=== PATIENT | male | born 1985 | race Caucasian/White ===

== ENCOUNTER 2023-09-13 21:11 | Emergency (ER) | payer OTHER, SELFPAY ==
[2023-09-13 21:17] VITALS: BP 172/100
--- NOTE | 2023-09-13 23:43 | ED.GENMED ---
History of Present Illness
General
Chief Complaint: Musculo-Skeletal Complaint
Source: patient
Exam Limitations: none
Time Seen by Provider: 09/13/23 22:17
Travel History
Have you had any contact with someone who has COVID-19?: No
Do you have any symptoms of coronavirus? Fever > 100 degrees, chills, cough, shortness of breath, sore throat, loss of taste or smell, muscle aches, or headache?: No
History of Present Illness
History of Present Illness:
38-year-old male who presents with a right wrist injury. The patient states he fell just prior to arrival. Complains of pain just distal to the ulnar styloid. No finger injuries. No distal numbness or tingling. Does have a history of operative
repair of this wrist
Past History
Past History
ED Past Medical History: HTN
ED Past Surgical History: Orthopedic and Other (septoplasty)
Social History
Tobacco: Former smoker
Alcohol: Occasional
Personal:
Living: with family
Employment: Employed
Phy Exam
Physical Exam
Physical Exam:
CONSTITUTIONAL Vital signs reviewed, Patient alert and oriented to person, place and time. Well-appearing
HEAD atraumatic, normocephalic.
EYES eyelids normal to inspection, Extraocular muscles intact, Conjunctiva normal, Sclera normal.
NECK normal range of motion, Trachea midline, no jugular venous distention.
RESP no respiratory distress
BACK No obvious deformities
UPPER EXTREMITY Gross Range of motion normal, gross motor strength normal. Moderate tenderness to the area just distal to the ulnar styloid. Minor tenderness on the lateral carpal bones of the right wrist. Normal distal cap refill. Metacarpals
nontender. Distal radius nontender. Elbow unaffected
LOWER EXTREMITY Gross range of motion normal, Gross motor strength normal
NEURO Speech normal, No focal motor deficits include, Matthews coma scale 15, Memory normal, Cranial Nerves intact to screening exam.
SKIN Skin warm, dry, and normal in color.
PSYCHIATRIC Patient oriented to person place and time, Normal affect.
Course
Orders/Labs/Results
Orders:
Orders
09/13/23 21:22
Wrist, Right 3 Views [CR Wrist - Right Min 3 Views] Urgent
Comment:
Reason For Exam: injury
Vital Signs
Initial and Last Documented VS:
Initial Vital Signs
Temp Pulse Resp BP Pulse Ox
98.1 F 95 20 172/100 99
09/13/23 21:17 09/13/23 21:17 09/13/23 21:17 09/13/23 21:17 09/13/23 21:17
Last Documented Vital Signs
Temp Pulse Resp BP Pulse Ox
98.1 F 95 20 172/100 99
09/13/23 21:17 09/13/23 21:17 09/13/23 21:17 09/13/23 21:17 09/13/23 21:17
MDM/Problems Addressed
MDM/Problems Addressed:
Suspect triquetrum avulsion
Acute Exacerbation and/or Progression of Chronic Illness: HTN
*Pulse Oximetry
Patient hypoxic: no
*Critical Care Note
Total Time (30-74mins, 75-104mins- exclusive of procedures): Not Applicable
Data Reviewed
Source: patient
Patient Management
Escalation/DeEscalation of care consider admission/obs:
Suspect avulsion fracture off what I suspect is of the triquetrum. Volar Velcro splint applied. Outpatient follow with orthopedics
ED Attending Note
-
Portions of this chart may have been created with voice recognition software.� Occasional wrong word or��sound alike� substitutions may have occurred due to the inherent limitations of voice recognition software.
Discharge Plan
Departure
Patient Disposition: Home (Routine Discharge)
Date of Disposition: 09/13/23
Time of Disposition: 23:44
Patient with high blood pressure during this ER visit?: Yes
Discharge Problem:
Carpal bone fracture
Instructions: Wrist Fracture (DC), BLOOD PRESSURE
Prescriptions:
No Action
multivitamin 1 EACH tablet
1 ea PO DAILY
lisinopril 5 mg Tablet
5 mg PO DAILY
Referrals:
Talib Quesada MD [Active] -
Tonny Castañeda MD [Family Provider] -
Activity Restrictions/Additional Instructions:
Please rest, ice and elevate your injured wrist. Please see orthopedics in the next 1 week for follow-up, reevaluation and repeat x-rays. Return immediately for numbness, tingling, worsening symptoms or any other concerns
Interventions
Interventions:
*Risk Screen - Suicide Last Done: 09/13/23 22:18
*General Assessment Last Done: 09/13/23 21:17
*Neglect/Abuse Screening Last Done: 09/13/23 21:17
ED- Fall Risk Assessment Last Done: 09/13/23 21:17
*ED COVID-19 Vaccine History Last Done: 09/13/23 21:17
*Nursing Disposition Last Done: 09/13/23 23:54
ED-Musculoskeletal Assessment Last Done: 09/13/23 22:17
Discharge Date and Time
Discharge Date/Time: 09/13/23 23:55
== END 2023-09-13 23:55 | disposition home or self-care (01) ==
LOC: EMR 21:11
PROVIDERS: EMERGENCY PHYSICIAN Emergency Medicine; FAMILY PHYSICIAN Internal Medicine
DX: S62.101A Fracture of unspecified carpal bone, right wrist, initial encounter for closed fracture (principal); W19.XXXA Unspecified fall, initial encounter; I10 Essential (primary) hypertension; Z87.891 Personal history of nicotine dependence
CPT/HCPCS: 99283; 29125; 73110

== ENCOUNTER 2024-02-02 11:55 | Emergency (ER) | payer OTHER, SELFPAY ==
[2024-02-02 11:58] VITALS: BP 163/115
[2024-02-02 12:12] VITALS: BP 147/104
--- NOTE | 2024-02-02 13:57 | ED.GENMED ---
History of Present Illness
General
Chief Complaint: Skin Surface Trauma
Source: patient
Exam Limitations: none
Time Seen by Provider: 02/02/24 12:37
Nursing documentation reviewed up to this point in time: agreed with
History of Present Illness
History of Present Illness:
38-year-old male presenting to the emergency department today with concerns of left-sided hand laceration that occurred from a metal yard stake just prior to arrival denies numbness weakness or additional concerns. He is up-to-date with his tetanus
vaccination no immunosuppressive history.
Past History
Past History
ED Past Medical History: HTN
ED Past Surgical History: Orthopedic and Other (septoplasty)
Social History
Tobacco: Former smoker
Alcohol: Occasional
Personal:
Living: with family
Employment: Employed
Review of Systems
Review of Systems
Allergies reviewed?: Yes
All Other Systems: ROS reviewed and negative except as documented in HPI and ROS
Phy Exam
Physical Exam
Physical Exam:
GENERAL: Alert , in no apparent distress
EYE: pupils equal and reactive
NECK: Supple, no significant adenopathy.
ENT: o/p clr, mmm.
CARDIAC: Regular rate and rhythm .
LUNGS: Clear breath sounds bilaterally, no acute respiratory distress, no wheezes/rales/rhonchi
ABDOMEN: Soft, without focal tenderness, no r/g, no cvat
NEUROLOGICAL: Alert and oriented, no focal neuro deficits
SKIN: Laceration to the left hand on the hypothenar eminence laterally. Stellate in shape central loss of tissue roughly 2.5 cm in length. Warm and dry, skin intact.
MUSCULOSKELETAL: No edema, well perfused.
PSYCH: Normal and appropriate interaction.
Course
Vital Signs
Initial and Last Documented VS:
Initial Vital Signs
Temp Pulse Resp BP Pulse Ox
98.7 F 107 18 163/115 97
02/02/24 11:58 02/02/24 11:58 02/02/24 11:58 02/02/24 11:58 02/02/24 11:58
Last Documented Vital Signs
Temp Pulse Resp BP Pulse Ox
98.7 F 107 18 147/104 97
02/02/24 11:58 02/02/24 11:58 02/02/24 11:58 02/02/24 12:12 02/02/24 11:58
Procedures
Laceration Closure
Left Ulnar Hand:
Status of Wound: clean
Size of Wound in cm: 2.5
Description of Wound Edges: ragged
Preparation: cleaned with soap & water
Anesthesia: 2% Lidocaine
Revision/Debridement: minor revision and irrigate-direct pressure
Wound exploration: explored to base- no FB and no tendon involvement
Type of Closure: single layer closure
Skin Closure Material: 4-0 nylon
Number of sutures: 7
MDM/Problems Addressed
MDM/Problems Addressed:
30-year-old male presenting to the emergency department today with concerns of a laceration to his hand occurring from a metal yard sign prior to arrival. He claims that was very clean. No foreign bodies likely denies any risk of infection. Area
was cleaned thoroughly with no signs of foreign body and closed with 7 stitches. Advised to keep the area clean covered and return for any signs of infection. Otherwise advised for removal in 14 days.
*Critical Care Note
Total Time (30-74mins, 75-104mins- exclusive of procedures): Not Applicable
ED Attending Note
-
Portions of this chart may have been created with voice recognition software.� Occasional wrong word or��sound alike� substitutions may have occurred due to the inherent limitations of voice recognition software.
Discharge Plan
Departure
Patient Disposition: Home (Routine Discharge)
Date of Disposition: 02/02/24
Time of Disposition: 13:57
Patient with high blood pressure during this ER visit?: No
Condition: Good
Covid-19: Not Applicable
Discharge Problem:
Hand laceration
Instructions: Laceration Repair With Stitches (DC)
Prescriptions:
No Action
multivitamin 1 EACH tablet
1 ea PO DAILY
lisinopril 5 mg Tablet
5 mg PO DAILY
Referrals:
UNKNOWN - PT DOES,NOT KNOW [Family Provider] -
Activity Restrictions/Additional Instructions:
You came to the emergency department today with concerns of a laceration to your left hand. Please keep the area clean covered and have the 7 sutures removed in 14 days. Return to the emergency department any worsening, new or concerning symptoms.
Interventions
Interventions:
*General Assessment Last Done: 02/02/24 14:09
*Nursing Disposition Last Done: 02/02/24 14:09
ED-Skin Assessment Last Done: 02/02/24 12:15
Discharge Date and Time
Discharge Date/Time: 02/02/24 14:09
Print Language: FRISIAN
== END 2024-02-02 14:09 | disposition home or self-care (01) ==
LOC: EMR 11:55
PROVIDERS: EMERGENCY PHYSICIAN Emergency Medicine
DX: S61.412A Laceration without foreign body of left hand, initial encounter (principal); X58.XXXA Exposure to other specified factors, initial encounter; I10 Essential (primary) hypertension; Z87.891 Personal history of nicotine dependence
CPT/HCPCS: 99282; 12001

== ENCOUNTER 2024-03-31 13:02 | Emergency (ER) | payer OTHER, SELFPAY ==
[2024-03-31 13:08] VITALS: BP 154/99
--- NOTE | 2024-03-31 15:28 | ED.GENMED ---
History of Present Illness
<KATELYN Beck - Last Filed: 03/31/24 15:48>
General
Chief Complaint: Musculo-Skeletal Complaint
Source: patient
Exam Limitations: none
Time Seen by Provider: 03/31/24 14:23
Nursing documentation reviewed up to this point in time: agreed with
History of Present Illness
History of Present Illness:
Patient is a 38-year-old male who presents to the ER for evaluation of right knee pain. Patient reports yesterday he was kneeling on his knee for couple minutes and felt pain in his right knee. He denies he denies any actual trauma or twisting
mechanism. 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 He does complain of pain though he has been taking Motrin. He denies any fever chills
Past History
<KATELYN Beck - Last Filed: 03/31/24 15:48>
Past History
ED Past Medical History: HTN
ED Past Surgical History: Orthopedic and Other (septoplasty)
Social History
Tobacco: Former smoker
Alcohol: Occasional
Personal:
Living: with family
Employment: Employed
Review of Systems
<KATELYN Beck - Last Filed: 03/31/24 15:48>
Review of Systems
Allergies reviewed?: Yes
All Other Systems: ROS reviewed and negative except as documented in HPI and ROS
Constitutional: Reports no symptoms; Denies fever, fatigue or chills
Musculoskeletal: Reports other (right knee pain )
Skin: Reports no symptoms
Neurological: Reports no symptoms
Hematologic/Lymphatic: Reports no symptoms
Psychiatric: Reports no symptoms
Phy Exam
<KATELYN Beck - Last Filed: 03/31/24 15:48>
General Physical Exam
General Presentation: no apparent distress
General age: appears stated age
General Skin: warm and dry
General Habitus: normal
General Mental: alert
General Hydration: appears well hydrated
Neurological Exam
Neurological Exam: alert and oriented x3
Musculoskeletal Exam
Musculoskeletal Exam: other (Right lower strong pulses patient tender below patella with mild swelling small area of erythema tender to patella region and below patella )
Skin Exam
Skin Exam: normal color and warm/dry
Psychiatric Exam
Psychiatric Exam: normal mood/affect
Course
<KATELYN Beck - Last Filed: 03/31/24 15:48>
Orders/Labs/Results
Orders:
Orders
03/31/24 13:11
CR Knee- Right 4 Or More View* Urgent
Comment:
Reason For Exam: pain
03/31/24 15:35
Crutches-Treatment ONCE
03/31/24 15:36
Booker Wrap Right-Treatment ONCE
Comment: right knee
03/31/24 15:41
Hydrocodone 5/APAP 325 [[place] 5/325] 1 tablet PO NOW STA
Ibuprofen [Motrin] 600 mg PO NOW STA
Vital Signs
Initial and Last Documented VS:
Initial Vital Signs
Temp Pulse Resp BP Pulse Ox
98.3 F 110 18 154/99 98
03/31/24 13:08 03/31/24 13:08 03/31/24 13:08 03/31/24 13:08 03/31/24 13:08
Last Documented Vital Signs
Temp Pulse Resp BP Pulse Ox
98.5 F 110 18 154/99 98
03/31/24 15:07 03/31/24 13:08 03/31/24 13:08 03/31/24 13:08 03/31/24 13:08
Chief Nurse consulted with Physician
Chief Nurse consulted with physician?: Yes
Name of Physician Consulted: DR Connor
<Talib Connor DO - Last Filed: 03/31/24 15:33>
Orders/Labs/Results
Orders:
Orders
03/31/24 13:11
CR Knee- Right 4 Or More View* Urgent
Comment:
Reason For Exam: pain
03/31/24 15:35
Crutches-Treatment ONCE
03/31/24 15:36
Booker Wrap Right-Treatment ONCE
Comment: right knee
03/31/24 15:41
Hydrocodone 5/APAP 325 [[place] 5/325] 1 tablet PO NOW STA
Ibuprofen [Motrin] 600 mg PO NOW STA
Vital Signs
Initial and Last Documented VS:
Initial Vital Signs
Temp Pulse Resp BP Pulse Ox
98.3 F 110 18 154/99 98
03/31/24 13:08 03/31/24 13:08 03/31/24 13:08 03/31/24 13:08 03/31/24 13:08
Last Documented Vital Signs
Temp Pulse Resp BP Pulse Ox
98.5 F 110 18 154/99 98
03/31/24 15:07 03/31/24 13:08 03/31/24 13:08 03/31/24 13:08 03/31/24 13:08
<KATELYN Beck - Last Filed: 03/31/24 15:48>
MDM/Problems Addressed
Differential Diagnosis Includes:
Not limited to bursitis less likely infection
MDM/Problems Addressed:
Symptoms are likely consistent with prepatellar bursitis. 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 He has obvious swelling very mild erythema on exam but more consistent with
bursitis than infection/septic arthritis. He denies any fever chills he is afebrile here and nontoxic-appearing. eval by ED physician will physician d/c w/ crutches/booker wrap nsaids pain meds and close outpt f/u by ortho
<KATELYN Beck - Last Filed: 03/31/24 15:48>
*Critical Care Note
Total Time (30-74mins, 75-104mins- exclusive of procedures): Not Applicable
ED Attending Note
<KATELYN Beck - Last Filed: 03/31/24 15:48>
-
Portions of this chart may have been created with voice recognition software.� Occasional wrong word or��sound alike� substitutions may have occurred due to the inherent limitations of voice recognition software.
<Talib Connor DO - Last Filed: 03/31/24 15:33>
ED Attending Note
Patient seen and examined by attending physician: Yes
I performed the substantive portion of visit, reviewed & personally made and approve the management plan that is documented in note by myself or JOSE.: Yes
ED Attending Note:
Seen with [employer] examined independently tenderness minimal redness positive swelling over the right prepatellar bursa after bending down x-ray noted not clearly cellulitic will start on NSAIDs, Booker wrap crutches PCP Ortho follow-up
No signs of infected prepatellar bursitis now although certainly could become that in the future
Discharge Plan
Departure
Patient Disposition: Home (Routine Discharge)
Date of Disposition: 03/31/24
Time of Disposition: 15:42
Patient with high blood pressure during this ER visit?: Yes
Condition: Fair
Covid-19: Not Applicable
Discharge Problem:
Bursitis of right knee
Instructions: Bursitis (DC)
Prescriptions:
New
hydrocodone-acetaminophen 5-325 mg tablet
1 tab PO Q6H PRN (Reason: Pain) Qty: 10 0RF
No Action
multivitamin 1 EACH tablet
1 ea PO DAILY
lisinopril 5 mg Tablet
5 mg PO DAILY
Referrals:
Trevor Mandujano MD [Active] -
Tonny Castañeda MD [Family Provider] -
Activity Restrictions/Additional Instructions:
As discussed keep elevate is much as possible. Ice the affected area for the next 24 hours 20 minutes at a time several times a day. Wear Booker wrap for support during the day but remove at night while sleeping. Use crutches for ambulation.
Take 600 mg of ibuprofen every 8 hours for the next 3 days
A prescription for pain medication was sent to your pharmacy take only as needed. No driving or drug alcohol while taking this medication..
Follow-up with orthopedics in the next 2 days. Call tomorrow to make an appointment as soon as possible return if any worsening of symptoms including worsening redness fever chills or increased pain.
Interventions
Interventions:
*Risk Screen - Suicide Last Done: 03/31/24 13:08
*General Assessment Last Done: 03/31/24 13:08
*Neglect/Abuse Screening Last Done: 03/31/24 13:08
*ED COVID-19 Vaccine History Last Done: 03/31/24 15:16
ED-Musculoskeletal Assessment Last Done: 03/31/24 15:16
Discharge Date and Time
Print Language: BELARUSIAN
[2024-03-31] MEDS: MOTRIN 600 MG PO (15:51)
[2024-03-31] MEDS: NORCO 5/325 1 TABLET PO (15:51)
== END 2024-03-31 16:02 | disposition home or self-care (01) ==
LOC: EMR 13:02
PROVIDERS: EMERGENCY PHYSICIAN Emergency Medicine; FAMILY PHYSICIAN Internal Medicine
DX: M70.51 Other bursitis of knee, right knee (principal); I10 Essential (primary) hypertension; Z87.891 Personal history of nicotine dependence
CPT/HCPCS: 99283; 73564

== ENCOUNTER → 2024-04-02 16:24 | Outpatient (REF) | payer OTHER, SELFPAY | LOC: RAD 16:24 | PROVIDERS: ATTENDING PHYSICIAN Orthopaedic Surgery; FAMILY PHYSICIAN Internal Medicine | DX: Z01.818 Encounter for other preprocedural examination (principal) | CPT/HCPCS: 70030 ==

== ENCOUNTER 2024-04-02 23:59 | Inpatient (IN) | payer OTHER, SELFPAY ==
[2024-04-02 20:47] VITALS: BP 137/109
--- NOTE | 2024-04-02 21:50 | ED.MUSCINJ ---
HPI-Injury
<Lulu Crowley RETORT OPERATOR - Last Filed: 04/05/24 08:22>
General
Chief Complaint: Musculo-Skeletal Complaint
Source: patient
Exam Limitations: none
Time Seen by Provider: 04/02/24 21:40
Nursing documentation reviewed up to this point in time: agreed with
History of Present Illness-Injury
Initial Injury comments:
38-year-old male with history of HTN on lisinopril 5 mg daily states he knelt down to wipe something off the floor 3 days ago and when he was down he felt a sudden severe pain in his right knee, he came here the next day and had a negative x-ray.
He has had increasing pain, swelling, redness and warmth about the knee and lower leg since. He called around and got an appointment today with [facility] and had an MRI but he does not have the results. He does have the disc with
him. Denies f/c/n/v. Feels well otherwise. Took Ibuprofen last 6 hours ago. States pain at res is 5/10 with any movement 8/10.
Past History
<Lulu Crowley RETORT OPERATOR - Last Filed: 04/05/24 08:22>
Past History
ED Past Medical History: HTN
ED Past Surgical History: Orthopedic and Other (septoplasty)
Social History
Tobacco: Former smoker
Alcohol: Occasional
Personal:
Living: with family
Employment: Employed
Review of Systems
<Lulu Crowley RETORT OPERATOR - Last Filed: 04/05/24 08:22>
Review of Systems
Allergies reviewed?: Yes
All Other Systems: ROS reviewed and negative except as documented in HPI and ROS
Constitutional: Denies fever or chills
Respiratory: Denies trouble breathing
Cardiac: Denies chest pain
Musculoskeletal: Reports edema (RLE with erytherma and tenderness about the knee)
Skin: Reports other (redness about right knee and lower leg)
Neurological: Denies numbness
Phy Exam
<Lulu Crowley, RETORT OPERATOR - Last Filed: 04/05/24 08:22>
Physical Exam
Physical Exam:
GENERAL: No acute distress. A&Ox3.
CONSTITUTIONAL: Afebrile.
EYES: clear, conjunctivae normal
RESPIRATORY: Regular respirations, nonlabored, lungs clear.
CARDIOVASCULAR: Regular rate and rhythm, no murmurs, no rubs.
GI: Soft, nontender, normal BS
MUSCULOSKELETAL: RLE from knee to ankle swollen 1-2 times the opposite leg, erythematous, warm tender about the knee, no calf tenderness. Limited ROM due to pain/swelling. 2/4 pedal pulse, brisk capillary refill, foot warm w no swelling. Well
perfused.
SKIN: Warm, dry, pink
PSYCH: Normal mood and affect. Well kept, interactive and appropriate
NEUROLOGIC: Awake, alert and oriented.
Injury Course
<Lulu Crowley, RETORT OPERATOR - Last Filed: 04/05/24 08:22>
Orders/Labs/Results
Orders:
Orders
04/02/24 21:50
US Periph Venous LOWER Ext RT Urgent
Comment:
Reason For Exam: swelling, redness, warmth, recent knee injury
04/02/24 22:09
Complete Blood Count/With Diff Urgent
Comprehensive Metabolic Panel Urgent
04/02/24 23:30
Ketorolac [Toradol] 30 mg IV NOW STA
04/02/24 23:32
CeFAZolin 1 GRAM [Ancef] 1 gram in 5 ml IV NOW
04/02/24 23:50
Admit/Transfer Patient As Directed
Co-Sign Provider:
Level of Care: Inpatient admission
Assign to:: Medical/Surgical
Physician / Group: Milo
Diagnosis: R Knee Septic Bursitis / Cellulitis
Reason for Hospitalization: R Knee Septic Bursitis / Cellulitis
Expected length of stay greater than two midnights?: Yes
ELOS- Estimated Length of Stay in days: 3
I certify the patient meets the requirements for IP care: Yes
PRN Pain Medication Management As Directed
May give lesser potent ordered pain med per pt: Yes
preference::
Protocol:: Medication orders for pain may be administered in a
manner that supports deferring to patient preference
when the pt is:
- Requesting an ordered lesser potent pain medication.
Least to most potent pain medications are defined
as: acetaminophen < NSAID < tramadol < opioids
(morphine, oxycodone, hydromorphone).
- Requesting a lesser dose of the same medication IF
ORDERED.
- Requesting a less intrusive route of administration
if both routes are prescribed by the provider (PO <
IV).
04/02/24 23:51
Code Status As Directed
Resuscitation Status: Full Code
04/03/24 00:58
0.9% Sodium Chloride 1000 ml [Nss] 1,000 ml IV 150 mls/hr
Acetaminophen [Tylenol] 650 mg PO Q4HPRN PRN
HYDROmorphone [Dilaudid] 0.5 mg IV Q4HPRN PRN
04/03/24 00:58
ORTHOPEDIC CONSULT Routine
Consulting Provider: Trevor Mandujano
Was physician already notified: Yes
Reason for consult: R Knee Septic Bursitis / Cellulitis
Activity As Directed
Activity Level: Ambulate
With Assistance
I/O [Intake/ Output] As Directed
Frequency: Per unit guidelines
Vital Signs As Directed
Frequency: Per unit guidelines
Oxygen Therapy [O2 Therapy] [RESP] Routine
Titrate/Wean O2 to maintain O2 sat greater than (%): 94
Ot Eval And Treat Routine
PT Consult [Pt Eval And Treat] Routine
Activity Level: Ambulate
With Assistance
DX Deep Vein Thrombosis Video Routine
04/03/24 01:54
Blood Culture Urgent
NOAH Source: Blood/Venous
Specimen Description:
04/03/24 Breakfast
NPO
Allow oral meds: Yes
Allow clear liquids: Sips of Clears
Ketorolac [Toradol] 15 mg IV Q6HPRN PRN
04/03/24 06:16
Basic Metabolic Panel IN AM
Complete Blood Count/No Diff IN AM
04/03/24 08:00
CeFAZolin 1 GRAM [Ancef] 1 gram in 5 ml IV Q8H
Lisinopril [Zestril] 10 mg PO DAILY
04/03/24 18:00
Enoxaparin Sodium [Lovenox] 40 mg SC QPM
Abnormal Lab Results
04/02/24
22:09
WBC 11.8 H 10^3/uL
(4.8-10.8)
RBC 4.69 L 10^6/uL
(4.70-6.10)
Abs Immat Gran (auto) 0.1 H 10^3/uL
(0-0.05)
Absolute Neuts (auto) 8.8 H 10^3/uL
(1.4-6.5)
Absolute Monos (auto) 1.1 H 10^3/uL
(0.1-0.6)
Lymphocytes % 13.1 L %
(20.5-51.1)
Monocytes % 9.6 H %
(1.7-9.3)
Glucose 108 H mg/dl
(70-99)
04/02/24 22:09
04/02/24 22:09
<Teena Swain MD - Last Filed: 04/02/24 23:31>
Orders/Labs/Results
Orders:
Orders
04/02/24 21:50
US Periph Venous LOWER Ext RT Urgent
Comment:
Reason For Exam: swelling, redness, warmth, recent knee injury
04/02/24 22:09
Complete Blood Count/With Diff Urgent
Comprehensive Metabolic Panel Urgent
04/02/24 23:30
Ketorolac [Toradol] 30 mg IV NOW STA
04/02/24 23:32
CeFAZolin 1 GRAM [Ancef] 1 gram in 5 ml IV NOW
04/02/24 23:50
Admit/Transfer Patient As Directed
Co-Sign Provider:
Level of Care: Inpatient admission
Assign to:: Medical/Surgical
Physician / Group: Milo
Diagnosis: R Knee Septic Bursitis / Cellulitis
Reason for Hospitalization: R Knee Septic Bursitis / Cellulitis
Expected length of stay greater than two midnights?: Yes
ELOS- Estimated Length of Stay in days: 3
I certify the patient meets the requirements for IP care: Yes
PRN Pain Medication Management As Directed
May give lesser potent ordered pain med per pt: Yes
preference::
Protocol:: Medication orders for pain may be administered in a
manner that supports deferring to patient preference
when the pt is:
- Requesting an ordered lesser potent pain medication.
Least to most potent pain medications are defined
as: acetaminophen < NSAID < tramadol < opioids
(morphine, oxycodone, hydromorphone).
- Requesting a lesser dose of the same medication IF
ORDERED.
- Requesting a less intrusive route of administration
if both routes are prescribed by the provider (PO <
IV).
04/02/24 23:51
Code Status As Directed
Resuscitation Status: Full Code
04/03/24 00:58
0.9% Sodium Chloride 1000 ml [Nss] 1,000 ml IV 150 mls/hr
Acetaminophen [Tylenol] 650 mg PO Q4HPRN PRN
HYDROmorphone [Dilaudid] 0.5 mg IV Q4HPRN PRN
04/03/24 00:58
ORTHOPEDIC CONSULT Routine
Consulting Provider: Trevor Mandujano
Was physician already notified: Yes
Reason for consult: R Knee Septic Bursitis / Cellulitis
Activity As Directed
Activity Level: Ambulate
With Assistance
I/O [Intake/ Output] As Directed
Frequency: Per unit guidelines
Vital Signs As Directed
Frequency: Per unit guidelines
Oxygen Therapy [O2 Therapy] [RESP] Routine
Titrate/Wean O2 to maintain O2 sat greater than (%): 94
Ot Eval And Treat Routine
PT Consult [Pt Eval And Treat] Routine
Activity Level: Ambulate
With Assistance
DX Deep Vein Thrombosis Video Routine
04/03/24 01:54
Blood Culture Urgent
NOAH Source: Blood/Venous
Specimen Description:
04/03/24 Breakfast
NPO
Allow oral meds: Yes
Allow clear liquids: Sips of Clears
Ketorolac [Toradol] 15 mg IV Q6HPRN PRN
04/03/24 06:16
Basic Metabolic Panel IN AM
Complete Blood Count/No Diff IN AM
04/03/24 08:00
CeFAZolin 1 GRAM [Ancef] 1 gram in 5 ml IV Q8H
Lisinopril [Zestril] 10 mg PO DAILY
04/03/24 18:00
Enoxaparin Sodium [Lovenox] 40 mg SC QPM
Abnormal Lab Results
04/02/24
22:09
WBC 11.8 H 10^3/uL
(4.8-10.8)
RBC 4.69 L 10^6/uL
(4.70-6.10)
Abs Immat Gran (auto) 0.1 H 10^3/uL
(0-0.05)
Absolute Neuts (auto) 8.8 H 10^3/uL
(1.4-6.5)
Absolute Monos (auto) 1.1 H 10^3/uL
(0.1-0.6)
Lymphocytes % 13.1 L %
(20.5-51.1)
Monocytes % 9.6 H %
(1.7-9.3)
Glucose 108 H mg/dl
(70-99)
04/02/24 22:09
04/02/24 22:09
Mohamudlt;Lulu Crowley RETORT OPERATOR - Last Filed: 04/05/24 08:22>
MDM/Problems Addressed
Differential Diagnosis Includes:
DVT, cellulitis, compartment syndrome
MDM/Problems Addressed:
38-year-old male with history of HTN on lisinopril 5 mg daily states he knelt down to wipe something off the floor 3 days ago and when he was down he felt a sudden severe pain in his right knee, he came here the next day and had a negative x-ray.
He has had increasing pain, swelling, redness and warmth about the knee and lower leg since. He called around and got an appointment today with [facility] and had an MRI but he does not have the results. He does have the disc with
him. Denies f/c/n/v. Feels well otherwise. Took Ibuprofen last 6 hours ago. States pain at res is 5/10 with any movement 8/10.
Temp 99.8, NAD
No sign of compartment syndrome, foot warm, pedal pulse normal, pain controlled.
CBC with no clinically significant abnormality
CMP normal
Ultrasound right lower extremity: Negative for DVT
Plan: admit: Cellulitis RLE,
Right knee injury
Case discussed with Dr. Swain who examined pt and agrees with assessment and plan
<Lulu Crowley RETORT OPERATOR - Last Filed: 04/05/24 08:22>
*Critical Care Note
Total Time (30-74mins, 75-104mins- exclusive of procedures): Not Applicable
ED Attending Note
<Lulu Crowley RETORT OPERATOR - Last Filed: 04/05/24 08:22>
-
Portions of this chart may have been created with voice recognition software.� Occasional wrong word or��sound alike� substitutions may have occurred due to the inherent limitations of voice recognition software.
<Teena Swain MD - Last Filed: 04/02/24 23:31>
ED Attending Note
Patient seen and examined by attending physician: Yes
I performed the substantive portion of visit, reviewed & personally made and approve the management plan that is documented in note by myself or JOSE.: Yes
ED Attending Note:
Patient appears nontoxic. Patient has strong pulses in bilateral feet. Patient has warmth and erythema of anterior right lower leg extending up to patellar area.
Discharge Plan
Departure
Patient Disposition: Admit
Date of Disposition: 04/02/24
Time of Disposition: 23:22
Admit to: Med/Surg
Presentation/result/management discussed w/ accepting MD/DO: Hospitalist
Condition: Fair
Discharge Problem:
Cellulitis of right lower extremity
Interventions
Interventions:
*Risk Screen - Suicide Last Done: 04/03/24 01:01
*General Assessment Last Done: 04/02/24 20:47
*Neglect/Abuse Screening Last Done: 04/02/24 20:47
*ED COVID-19 Vaccine History Last Done: 04/03/24 01:01
*Nursing Disposition Last Done: 04/03/24 00:56
ED-Musculoskeletal Assessment Last Done: 04/02/24 20:59
Discharge Date and Time
Discharge Date/Time: 04/03/24 00:57
[2024-04-02 22:15] LABS: % Basophils 0.4 % (0-2); % Eosinophils 2.1 % (0-6); % Immature Granulocytes 0.4 % (0-0.5); % Lymphocytes 13.1 % (20.5-51.1); % Monocytes 9.6 % (1.7-9.3); % Neutrophils 74.4 % (42.2-75.2); Absolute Basophils 0.1 10^3/uL (0-0.2); Absolute Eosinophils 0.3 10^3/uL (0-0.7); Absolute Immature Granulocytes 0.1 10^3/uL (0-0.05); Absolute Lymphocytes 1.6 10^3/uL (1.2-3.4); Absolute Monocytes 1.1 10^3/uL (0.1-0.6); Absolute Neutrophils 8.8 10^3/uL (1.4-6.5); Hematocrit 39.5 % (39.0-52.0); Hemoglobin 14.3 g/dL (13.0-18.0); Mean Corp Hgb Conc. 36.2 g/dL (33.0-37.0); Mean Corpuscular Hgb 30.5 pg (27.0-31.0); Mean Corpuscular Volume 84.2 fL (80.0-94.0); Mean Platelet Volume 9.3 fL (7.4-10.4); Nucleated Red Blood Cells % 0 % (-); Platelet Count 197 10^3/uL (130-400); Red Blood Cell Count 4.69 10^6/uL (4.70-6.10); Red Cell Dist. Width 11.9 % (11.5-14.5); White Blood Cell Count 11.8 10^3/uL (4.8-10.8)
[2024-04-02 22:46] LABS: ALT (SGPT) 19 U/L (0-50); AST (SGOT) 19 U/L (17-59); Alkaline Phosphatase 63 U/L (38-126); Blood Urea Nitrogen 20 mg/dl (9-20); Calcium 8.9 mg/dl (8.4-10.2); Carbon Dioxide 25 mmol/L (22-30); Chloride 102 mmol/L (98-107); Glucose 108 mg/dl (70-99); Potassium 4.3 mmol/L (3.5-5.1); Sodium 139 mmol/L (135-145); Total Bilirubin 0.6 mg/dl (0.2-1.3); Total Protein 6.6 g/dl (6.3-8.2); eGFR > 60.00
[2024-04-02 23:27] VITALS: BMI 41.1
[2024-04-02] MEDS: TORADOL 30 MG IV (23:48)
[2024-04-02] MEDS: ANCEF 5 IV (23:48)
--- NOTE | 2024-04-02 23:57 | HPS.HSE ---
Family Physician
-
Family Physician: Tonny Castañeda
Chief Complaint
-
RLE Pain and Swelling
History of Present Illness
Patient is a 38y M with PMH significant for hypertension who presents to ED complaining of RLE pain, swelling and redness x several days. Patient states that symptoms initially began Friday evening. He gently kneeled down onto the floor and
noted significant pain upon trying to stand. He had significant swelling at the knee and continued pain. He was seen in the ED Friday and treated with ice and NSAIDs. He was seen by [facility] in the office in follow-up and an MRI was ordered for
additional evaluation.
Patient completed the MRI this evening just prior to presentation to the ED.
He notes that his LE has become markedly more swollen. He notes increased redness and warmth. He has severe pain with flexion of the knee during weight bearing.
No systemic symptoms such as fevers / chills / etc.
Medical History
Past Medical History
Past Medical History: Reports Other
Additional Past Medical History:
Hypertension
Past Surgical History: Reports Other
Additional Past Surgical History:
L Eye Foreign Body Removal (nail)
Right Wrist ORIF with Hardware
Vasectomy
Social History
Tobacco: Non-smoker
Alcohol: Occasional
Drug: None
Family History
Family History: Not pertinent
Allergies / Home Medications
Allergies reflects when Allergies were last updated in [facility].
Home Medications with original date entered in [facility]
Allergy/Medication List:
Allergies
Allergy/AdvReac Type Severity Reaction Status Date / Time
pollen extracts Allergy NASAL Verified 04/02/24 23:32
CONGESTION
Home Medications
hydrocodone 5 mg-acetaminophen 325 mg tablet 1 tab PO Q6H PRN Pain #10 tabs 03/31/24
lisinopril 10 mg tablet 10 mg PO DAILY 04/02/24
therapeutic multivitamin 1 tab PO DAILY 04/02/24
Review of Systems
-
History Source: Patient
A 12 point ROS was completed and negative except as noted: Yes
Constitutional: Denies Fever or Chills
Respiratory: Denies Cough or Trouble Breathing
Cardiac: Denies Chest Pain or Palpitations
Abdomen/GI: Denies Abdominal Pain, Nausea, Vomiting or Diarrhea
Musculoskeletal: Reports Joint Pain, Joint Swelling, Muscle Pain and Edema
Neurological: Denies Dizzy or Headache
Psych: Denies Depression or Anxiety
Physical Exam
Vital Signs
Vital Signs
Temp Pulse Resp BP Pulse Ox
99.8 F 111 19 137/109 97
04/02/24 20:47 04/02/24 20:47 04/02/24 20:47 04/02/24 20:47 04/02/24 20:47
Physical Exam
General: Other (38y M in no acute distress.)
HEENT: Moist mucous membranes
Respiratory: Clear; No Wheezes, Rales or Rhonchi
Cardiac: S1/S2 and Regular Rhythm; No Murmur
GI: Soft, Non Tender, Non Distended and Normal Bowel Sounds
Musculoskeletal: Other (Edema, erythema and increased warmth of the R lower leg from the knee to the ankle. Circumferential. Pos tenderness without evident fluctance. Pain with ROM of the R knee. Neurovascularly intact at the foot / ankle.)
Neuro: AO x 3 and Nonfocal/grossly intact
Laboratory Results
-
04/02/24 22:09
04/02/24 22:09
Laboratory Results
Total Bilirubin 0.6 mg/dl (0.2-1.3) 04/02/24 22:09
AST 19 U/L (17-59) 04/02/24 22:09
ALT 19 U/L (0-50) 04/02/24 22:09
Alkaline Phosphatase 63 U/L (38-126) 04/02/24 22:09
Impression/Plan
-
A/P: Patient is a 38y M with PMH significant for hypertension who presents to ED complaining of pain, swelling and redness of the RLE.
RLE Cellulitis / Septic Bursitis
- Admit for further evaluation and treatment.
- Marked edema, tenderness, increased warmth, etc appreciated on exam.
- Imaging negative for DVT - but notes suprapatellar effusion and reactive R inguinal node.
- IV abx with Ancef for now.
- Check blood culture.
- Ortho evaluation for further recommendations.
- Follow-up MRI results when available.
- If any aspiration performed - send fluid for culture analysis to guide abx selection.
- Supportive care including pain control, IVF, etc.
- Follow for clinical improvement.
Benign Hypertension
- Stable. Continue lisinopril with holding parameters.
Obesity due to excess calories
- Affects all aspects of care.
- Encourage healthy diet and exercise with goal of weight loss.
DVT Prophylaxis: Lovenox
Code Status: Full
[2024-04-03] VITALS (19 sets, daily range): BP systolic 98–153; BP diastolic 69–96; BMI 40.0
[2024-04-03] MEDS: NSS 1000 IV ×2 (01:54→08:11)
[2024-04-03] MEDS: DILAUDID 0.5 MG IV ×4 (01:55→23:40)
[2024-04-03] MEDS: FLUSH (NSS) 1 FLUSH IV (02:04)
--- NOTE | 2024-04-03 02:27 | PTCARENOTE ---
Pt arrived to the floor from the ED via strecher. Ambulated to unit bed with minimal assistance. Pt is AAOx3, VSS, pt complained of 8/10 R upper and lower leg pain. Pt is oriented to the room, call be within reach. Plan of care ongoing
[2024-04-03 07:39] LABS: Hematocrit 39.4 % (39.0-52.0); Hemoglobin 13.9 g/dL (13.0-18.0); Mean Corp Hgb Conc. 35.3 g/dL (33.0-37.0); Mean Corpuscular Hgb 30.3 pg (27.0-31.0); Mean Platelet Volume 9.8 fL (7.4-10.4); Platelet Count 199 10^3/uL (130-400); Red Blood Cell Count 4.58 10^6/uL (4.70-6.10); Red Cell Dist. Width 11.9 % (11.5-14.5); White Blood Cell Count 9.4 10^3/uL (4.8-10.8)
[2024-04-03 08:12] LABS: Blood Urea Nitrogen 18 mg/dl (9-20); Calcium 8.5 mg/dl (8.4-10.2); Carbon Dioxide 26 mmol/L (22-30); Chloride 102 mmol/L (98-107); Estimated Creatinine Clearance > 125 ml/min; Glucose 85 mg/dl (70-99); Potassium 3.9 mmol/L (3.5-5.1); Sodium 142 mmol/L (135-145); eGFR > 60.00
[2024-04-03] MEDS: ANCEF 5 IV (08:12)
[2024-04-03] MEDS: ZESTRIL 10 MG PO (08:12)
--- NOTE | 2024-04-03 09:05 | W.PN.HOSP.TC ---
Today's Communication/Plan
-
Orthopedic surgery
Pain control
Assessment / Plan
Assessment / Plan
A/P: 38-year-old male past medical history of hypertension presents to the ED complaining of pain swelling and erythema of the right lower extremity and knee. Patient had MRI day of admission as an outpatient he has a disc with him
RLE Cellulitis / Septic Bursitis
- Marked edema, tenderness, increased warmth on exam.
- Imaging negative for DVT - but notes suprapatellar effusion and reactive R inguinal node.
- Patient received 2 days of IV Ancef
-Patient started on vancomycin empirically to cover for MRSA
- Blood cultures pending
- Ortho took patient for washout of abscess
- Patients home MRI showed fluid collection
- Supportive care including pain control, IVF, etc.
-Pain meds adjusted to oxycodone 5 for moderate, oxycodone 10 for severe and Dilaudid for breakthrough
-Holding ketorolac
-MRSA nasal swab ordered
Benign Hypertension
- Stable.
-Continue lisinopril with holding parameters.
Obesity due to excess calories
Hemoglobin A1c added on
DVT Prophylaxis: Lovenox
Code Status: Full
Anticipated Discharge: 24 - 48 hours
Subjective/Interval History
-
Date of Service: April 03, 2024
Patient currently n.p.o.
Patient reports severe pain of the right lower extremity to passive and active movement as well as light palpation
Objective Data
-
Labs:
Laboratory Results
04/02/24 04/03/24
22:09 06:16
WBC 11.8 H 9.4
Hgb 14.3 13.9
Hct 39.5 39.4
Plt Count 197 199
Sodium 139 142
Potassium 4.3 3.9
Chloride 102 102
Carbon Dioxide 25 26
BUN 20 18
Creatinine 0.8 0.8
Glucose 108 H 85
Calcium 8.9 8.5
Total Bilirubin 0.6
AST 19
ALT 19
Alkaline Phosphatase 63
Vital Signs:
Vital Signs
Temp Pulse Resp BP Pulse Ox
99 F 99 16 143/88 98
04/03/24 07:57 04/03/24 08:12 04/03/24 07:57 04/03/24 08:12 04/03/24 07:57
I&O
04/02/24 04/03/24 04/04/24
06:59 06:59 06:59
Intake Total 0 / 0
Output Total 0 / 0
Balance 0 / 0
Review of Systems
-
History Source: Patient
Constitutional: Reports No Symptoms
Respiratory: Reports No Symptoms
Cardiac: Reports No Symptoms
Musculoskeletal: Reports Joint Pain, Joint Swelling, Muscle Pain and Other (Right lower extremity erythematous and extremely tender to touch, left lower extremity nonerythematous nontender. Patient reports extreme pain to active motion of the right
knee on flexion and extension)
Skin: Reports Rash and Other (Right lower extremity extremely hot to touch)
Physical Exam
-
General: Well Developed, Well Nourished, No Apparent Distress, Comfortable and Conversant
Respiratory: Clear to Auscultation
Cardiac: Regular Rhythm and S1/S2
GI: Soft, Nontender, Nondistended and Normal Bowel Sounds
Musculoskeletal: Other (Right knee pain to active and passive motion on flexion and extension)
Skin: Other (Right lower extremity erythematous and extremely tender to touch, left lower extremity nonerythematous nontender. Patient reports extreme pain to active motion of the right knee on flexion and extension)
Neuro: Awake, Alert, Oriented and AO x 3
Psych: Calm and Intact Judgement/Insight
Data Reviewed
-
Labs: Labs Reviewed by me and Discussed with Physician
--- NOTE | 2024-04-03 09:07 | W.PN.UPDATE ---
Update Note
Progress Note Update
Full consult dictated. Patient seen and examined. 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 Presented to the ER on night with right knee apain after kneeling on the floor at home. He was referred to the office for prepatellar
bursitis. He was seen by another provider on and sent for an MRI of his right knee. The MRI was performed at [facility] at 8 PM last night and he presented to the ER after the MRI secondary to significant increase in swelling about
his right lower leg and increase in erythema. Denies diabetes. Afebrile. VSS. RLE: Intense erythema anterior knee with swelling and fluid in the prepatellar bursa. No effusion about the knee joint. No open wounds. NVI distally. Calf soft.
US negative for DVT. Radiographs no evidence of foreign body. MRI without report was reviewed by myself and shows inflammation in the the surrounding soft tissues about the proximal aspect of the lower right leg anteriorly with a collection
extending in the prepatellar bursa from the distal pole of the patella to the tibial tubercle. WBC down from 11 to 9. Patient has received Ancef. Have discussed with the patient. Treatment options discussed. Will proceed with right prepatellar
bursa I&D. Risks, complications, benefits and postop expectations discussed. Will proceed with surgery as the OR permits.
--- NOTE | 2024-04-03 10:28 | PHA.VAN.IN ---
Assessment
- Assessment
Renal Function: Unknown baseline
Renal Function may be Overestimated due to: bmi=40
AUC Dosing Plan
- Dosing Variables
Dosing Weight (kg): 133.674
Dosing CrCl (ml/min): 100
Vd coefficient (L/kg): 0.5
- Empiric Dosing
Initial / Loading Dose: 2000mg
Maintenance Regimen: 1500mg q12h
Estimated AUC (mcg*h/mL): 547
Estimated Peak (mcg*h/mL): 34.5
Estimated Trough (mcg/ml): 13.8
Estimated Half Life (H): 7.9
- Monitoring
No levels ordered at this time: consider at steady state
Pharmacokinetics Vancomycin I
- -
Patient Age: 38
Patient Sex: Male
Vancomycin Day #: 1
Indication: Skin And Soft Tissue
Requesting Provider: Dr. Handy
Height / Weight:
Height 6 ft
Actual Weight 133.674 kg
IBW in k.6
- Vital Signs / Lab Results
Temp Pulse Resp BP Pulse Ox
99 F 99 16 143/88 98
04/03/24 07:57 04/03/24 08:12 04/03/24 07:57 04/03/24 08:12 04/03/24 07:57
Lab Results - Hematology
04/02/24 04/03/24
22:09 06:16
WBC 11.8 H 9.4
Lab Results - Chemistry
04/02/24 04/03/24
22:09 06:16
BUN 20 18
Creatinine 0.8 0.8
Estimated Creat Clear > 125
Albumin 4.0
[2024-04-03] MEDS: VANCOCIN 540 MG IV (11:17)
--- NOTE | 2024-04-03 11:59 | CM ---
IA attempted; pt off floor for right prepatellar bursa I&D
Spoke with
Pt is a 38yr old male admitted with Bursitis/cellulitis
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
They have 2 steps to enter and a 1st floor bed and bath.
PCP is Tonny Castañeda
Pharm; Angelica Hirsch
feels she is capable of handling his needs for discharge. CM made self available if there are other needs for dc.
No needs anticipated at discharge.
--- NOTE | 2024-04-03 12:01 | W.PN.UPDATE ---
Update Note
Progress Note Update
I saw and evaluated the patient. I reviewed the resident�s note and agree with findings and plan as documented in the resident�s note.
Patient resting comfortably in bed
Complaining pain to right knee and below knee level. Afebrile in the night.
1. Right prepatellar septic bursitis
Cellulitis of proximal leg
-Patient initially noticed swelling/redness in right knee after kneeling down on the knee to do something
-worsening swelling/redness/pain in the area for few days and had an outpatient MRI Knee - showing prepatellar septic bursitis with significant soft tissue edema. Images reviewed personally
-No sign of systemic sepsis. Patient afebrile. Normal leukocyte
-Denies previous history of MRSA/not diabetic. No history of previous skin infection.
-In light of significant anemia and soft tissue infection maintained on IV vancomycin, patient was getting IV Ancef overnight.
-Orthopedic surgery evaluated and patient being taken to OR for incision and drainage and washout of bursa. Follow-up intraoperative cultures
-Pain medication adjusted to oral oxycodone with IV Dilaudid for breakthrough.
2. Essential HTN
-maintain on home dose of lisniopril
DVT PPx - lovenox
Full code
Total time spent : 53 mins
I personally saw and examined the patient.
I have reviewed all diagnostic interpretations and treatment plans as written.
Time includes patient management by me, time spent at the patients bedside, time to review lab and imaging results, discussing patient care, documentation in the medical record, and time spent with the family or caregiver and discussing care plan
with RN/Consultants.
[2024-04-03 12:05] LABS: Glycohemoglobin (HgbA1c) 5.1 % (4.0-5.6)
[2024-04-03] MEDS: TORADOL 30 MG IV (12:19)
--- NOTE | 2024-04-03 12:54 | PTCARENOTE ---
Addendum note .. Patient reported Pain to be #9/10 despite IV Dilaudid. He was resting comfortably snoring. Saturation on RA while sleeping noted to be 88-89%, 2L NC applied and patient instructed on importance multiple times however he would
remove. RN reached out to both Dr Mandujano/Dr Tejada and patient was given Toradol 30 MG IV. Upon transfer to floor patient reports pain level is now #8/10 (his baseline) and was transferred to floor. Patient reports pain improving. Stable for
transfer.
[2024-04-03] MEDS: NORMOSOL-R/PLASMALYTE-A 1000 IV (13:34)
[2024-04-03] MEDS: ASPIRIN 325 MG PO (17:58)
[2024-04-03] MEDS: ROXICODONE 5 MG PO (18:00)
[2024-04-03] MEDS: ROXICODONE 10 MG PO (22:14)
[2024-04-04] MEDS: NORMOSOL-R/PLASMALYTE-A 1000 IV (01:15)
[2024-04-04 03:00] VITALS: BP 158/87
[2024-04-04] MEDS: VANCOCIN 300 ML IV (06:06)
[2024-04-04] MEDS: VANCOCIN 300 MG IV (06:06)
[2024-04-04] MEDS: ROXICODONE 5 MG PO (06:28)
[2024-04-04 07:00] VITALS: BP 158/95
[2024-04-04 08:03] LABS: Hematocrit 36.5 % (39.0-52.0); Hemoglobin 13.3 g/dL (13.0-18.0); Mean Corp Hgb Conc. 36.4 g/dL (33.0-37.0); Mean Corpuscular Hgb 31.3 pg (27.0-31.0); Mean Corpuscular Volume 85.9 fL (80.0-94.0); Mean Platelet Volume 9.1 fL (7.4-10.4); Platelet Count 218 10^3/uL (130-400); Red Blood Cell Count 4.25 10^6/uL (4.70-6.10); Red Cell Dist. Width 11.4 % (11.5-14.5); White Blood Cell Count 11.1 10^3/uL (4.8-10.8)
--- NOTE | 2024-04-04 08:15 | W.PN.ORTHO ---
Today's Communication / Plan
-
Compressive dressing intermittently over the next 24 to 48 hours to prevent swelling prepatellar bursa area
Ice with elevation to control swelling and pain
Aspirin for DVT prophylaxis
Weightbearing as tolerated with assistive device if needed
From orthopedic standpoint good for discharge
Empiric oral antibiotics
Follow-up later this week to check on cultures/sensitivities, evaluate and review MRI
Orthopedics to sign off for now
Assessment
.
Distal Motor Intact: Yes
Dressing:
Clean, dry and intact.
Plan
.
Surgery / Date: R knee pre-patella bursectomy w/ I & D [address]
DVT Prophylaxis: Aspirin
Activity:
Out of bed.
PT/OT
Discharge Plan: Home
Subjective
.
.:
Patient resting comfortably.
Vital Signs and Labs
.
Vital Signs and Labs:
Lab Results
04/04/24 07:33
Temp Pulse Resp BP Pulse Ox
97.8 F 81 18 158/87 96
04/04/24 03:00 04/04/24 03:00 04/04/24 03:00 04/04/24 03:00 04/04/24 03:00
Physical Exam
-
Right knee Aquacel dressing removed. Incision is clean, dry and intact with skin clips in place. Incision was then cleaned with Betadine and new Aquacel dressing placed. Compressive Booker wrap placed. There does not appear to be any fluid
accumulation in the prepatellar bursal space. The warmth and erythema has improved dramatically. He still has generalized edema in the leg but much improved. No calf discomfort. Distal neurovascular was intact.
[2024-04-04 08:22] LABS: Blood Urea Nitrogen 12 mg/dl (9-20); Calcium 8.5 mg/dl (8.4-10.2); Carbon Dioxide 23 mmol/L (22-30); Chloride 104 mmol/L (98-107); Estimated Creatinine Clearance > 125 ml/min; Glucose 154 mg/dl (70-99); Potassium 4.2 mmol/L (3.5-5.1); Sodium 139 mmol/L (135-145); eGFR > 60.00
--- NOTE | 2024-04-04 08:27 | PHA.VAN.FU ---
Vancomycin Assessment / Plan
- Assessment
Renal Function: Stable
WBC's are: Stable
In the past 24 hrs, patient has been: Afebrile
- Dosing Plan
Continue: 1500MG Q12H
- Monitoring Plan
Peak Level: 04/05 @2100
Trough Level: 04/06 @0530
- Follow Up
Pharmacy will continue to follow.
Vancomycin Follow UP
- -
Patient Age: 38
Patient Sex: Male
Vancomycin Day #: 2
Indication: Skin And Soft Tissue
Requesting Provider: Dr. Handy
Height / Weight:
Height 6 ft
Actual Weight 133.674 kg
IBW in k.6
- Vital Signs / Lab Results
Temp Pulse Resp BP Pulse Ox
97.8 F 81 18 158/87 96
04/04/24 03:00 04/04/24 03:00 04/04/24 03:00 04/04/24 03:00 04/04/24 03:00
Lab Results - Hematology
04/02/24 04/03/24 04/04/24
22:09 06:16 07:33
WBC 11.8 H 9.4 11.1 H
Lab Results - Chemistry
04/02/24 04/03/24 04/04/24
22:09 06:16 07:33
BUN 20 18 12
Creatinine 0.8 0.8 0.6 L
Estimated Creat Clear > 125 > 125
Albumin 4.0
Microbiology Results
04/03/24 01:54 Blood Culture - Preliminary
Blood/Venous No Growth in 24 hours- Final report to follow
04/03/24 10:30 Gram Stain - Preliminary
Knee - Right
--- NOTE | 2024-04-04 08:41 | W.PN.HOSP.TC ---
Addendum entered and electronically signed by Moncho Handy MD 04/04/24 14:27:
I saw and evaluated the patient. I reviewed the resident�s note and agree with findings and plan as documented in the resident�s note.
Right knee prepatellar septic bursitis and surrounding cellulitis -status post I&D by orthopedic surgery, help appreciated. Intraoperative culture growing Staphylococcus, further identification and susceptibility pending. No previous history of
MRSA/screen pending. Patient not diabetic. No history of previous recurrent skin infection. Patient was given empiric vancomycin here. Discharged on oral Keflex course. Patient planned to follow-up with orthopedic surgery on outpatient basis
and orthopedic office will follow-up on culture result
Discharge home with antibiotics/pain medication
Original Note:
Today's Communication/Plan
-
Discharge home with orthopedic follow-up
Assessment / Plan
Assessment / Plan
A/P: 38-year-old male past medical history of hypertension presents to the ED complaining of pain swelling and erythema of the right lower extremity and knee. Patient had MRI day of admission as an outpatient he has a disc with him
RLE Cellulitis / Septic Bursitis
- Marked edema, tenderness, increased warmth on exam.
- Imaging negative for DVT - but notes suprapatellar effusion and reactive R inguinal node.
- Patient received 2 days of IV Ancef
-Patient started on vancomycin empirically to cover for MRSA, Vancomycin day 2
- Blood cultures Preliminary, no growth at 24 hours
- Postop day 1 of I&D and washout
- Patients home MRI showed fluid collection
- Supportive care including pain control, IVF, etc.
-Pain meds adjusted to oxycodone 5 for moderate, oxycodone 10 for severe and Dilaudid for breakthrough
-Holding ketorolac
-MRSA nasal swab Pending
-Patient feels much better, dressing was changed by orthopedic PA
-Patient will follow-up with their office next week, they will follow-up on his cultures and adjust antibiotics as needed
-Patient be discharged on Keflex and will follow-up with orthopedics
Benign Hypertension
- Stable.
-Continue lisinopril with holding parameters.
Obesity due to excess calories
Hemoglobin A1c Resulted in 5.1, patient is not prediabetic
DVT Prophylaxis: Lovenox
Code Status: Full
Anticipated Discharge: Today
Subjective/Interval History
-
Date of Service: April 04, 2024
Postop day 1 of I&D
Day 2 vancomycin
Patient reports leg pain much better after surgery and with pain medications
Objective Data
-
Labs:
Laboratory Results
04/04/24
07:33
WBC 11.1 H
Hgb 13.3
Hct 36.5 L
Plt Count 218
Sodium 139
Potassium 4.2
Chloride 104
Carbon Dioxide 23
BUN 12
Creatinine 0.6 L
Glucose 154 H
Calcium 8.5
Vital Signs:
Vital Signs
Temp Pulse Resp BP Pulse Ox
97.8 F 81 18 158/87 96
04/04/24 03:00 04/04/24 03:00 04/04/24 03:00 04/04/24 03:00 04/04/24 03:00
I&O
04/03/24 04/04/24 04/05/24
06:59 06:59 06:59
Intake Total 1110 / 1110 480 / 480
Output Total 0 / 0
Balance 1110 / 1110 480 / 480
Review of Systems
-
History Source: Patient
Constitutional: Reports No Symptoms
Respiratory: Reports No Symptoms
Cardiac: Reports No Symptoms
Abdomen/GI: Reports No Symptoms
Musculoskeletal: Reports Other (Patient reports some right lower extremity tenderness to palpation however much improved compared to yesterday)
Skin: Reports Other (Erythema and warmth of skin have decreased in intensity compared to yesterday)
Physical Exam
-
General: Well Developed, Well Nourished, Comfortable, Conversant and Obese
Respiratory: Clear to Auscultation
Cardiac: Regular Rhythm and S1/S2
GI: Soft, Nontender, Nondistended and Normal Bowel Sounds
Skin: Warm and Dry
Neuro: Awake, Alert, Oriented and AO x 3
Psych: Calm and Intact Judgement/Insight
[2024-04-04 08:50] VITALS: BP 126/83
[2024-04-04 08:55] VITALS: BP 126/83
[2024-04-04] MEDS: ZESTRIL 10 MG PO (08:57)
[2024-04-04] MEDS: ASPIRIN 325 MG PO (08:57)
[2024-04-04 11:37] VITALS: BP 152/92
--- NOTE | 2024-04-04 13:23 | W.DCSUMMARY ---
Addendum entered and electronically signed by Moncho Handy MD 04/04/24 14:28:
I personally performed a history and physical exam of the patient and discussed management with the resident. I reviewed the resident's note and agree with the documented findings and plan of care HPI/CC.
Intraoperative wound cultures growing Staphylococcus aureus, further susceptibility testing pending.
Original Note:
Documented by User: Raul Milligan DO, Resident 04/04/24 13:55
Discharge Summary
Discharge Data
Date of Admission: 04/02/24
Date of Discharge: 04/04/24
-
Pending Results: Yes
Additional Pending Results:
MRSA screen, wound culture, blood cultures
Hospital Course
Discharging Physician : Ole Milligan
Disposition : Home
Primary care physician : Dr. Castañeda
Principal Discharge diagnosis : Right lower extremity cellulitis/Septic bursitis
Chronic Discharge diagnosis : Benign hypertension, obesity
Hospital Course : 38-year-old male presents to the ED complaining of right lower extremity pain, swelling and redness for several days. Patient had significant swelling at the knee and before his admission to the ED he had an outpatient
MRI.Patient was started on IV Ancef blood cultures were ordered and orthopedics was consulted. Patient was admitted to [facility] for [facility] management. On his first day of admission orthopedics reviewed his MRI which demonstrated a fluid collection
under the skin and took the patient for incision and drainage with washout of the knee. Patient's antibiotics were adjusted from Ancef to vancomycin to prophylactically cover for MRSA, patient received 2 days of vancomycin. On discharge patient was
sent home with Keflex and will follow-up with orthopedics as an outpatient once his cultures have resulted and they will adjust antibiotics accordingly. Patient was discharged home with his and will follow-up with his primary care physician
within 1 week and orthopedics in 1 to 2 weeks.
Important imaging findings : 04/02/2024 peripheral vascular ultrasound, impression:
No evidence of deep venous thrombosis of the right lower extremity.
Procedure findings :
04/03/2024 Right patellar bursa and incision and drainage
Discharge Plan
-
Patient Disposition: Home (Routine Discharge)
Discharge Diagnosis/Procedures: septic bursitis
Condition: Fair
Diet: Regular
Activity: As tolerated
Driving Restrictions: No driving for 24 hours
Bathing Restrictions: OK to Shower
Referrals:
Trevor Mandujano MD [Active] -
Tonny Castañeda MD [Family Provider] - in one week
Prescriptions:
New
cephalexin 750 mg capsule
750 mg PO Q8H 7 Days Qty: 21 0RF
oxycodone 5 mg tablet
5 mg PO Q8H PRN (Reason: Pain) Qty: 14 0RF
Continued
therapeutic multivitamin Tablet
1 tab PO DAILY
lisinopril 10 mg Tablet
10 mg PO DAILY
Discontinued
hydrocodone-acetaminophen 5-325 mg tablet
1 tab PO Q6H PRN (Reason: Pain) Qty: 10 0RF
Patient Comments:
04/02/24: filled 03/31/24 for 10 tablets
Discharge Orders:
Discharge Patient (As Directed); Ordered 04/04/24
Ordered By: Moncho Handy
Discharge Date and Time
Discharge Date/Time: 04/04/24 11:55
Print Language: MALIAN

Documented by User: Moncho Handy MD 04/04/24 14:27
Discharge Summary
Discharge Data
Date of Admission: 04/02/24
Date of Discharge: 04/04/24
Discharge Plan
-
Patient Disposition: Home (Routine Discharge)
Discharge Diagnosis/Procedures: septic bursitis
Condition: Fair
Diet: Regular
Activity: As tolerated
Driving Restrictions: No driving for 24 hours
Bathing Restrictions: OK to Shower
Referrals:
Trevor Mandujano MD [Active] -
Tonny Castañeda MD [Family Provider] - in one week
Prescriptions:
New
cephalexin 750 mg capsule
750 mg PO Q8H 7 Days Qty: 21 0RF
oxycodone 5 mg tablet
5 mg PO Q8H PRN (Reason: Pain) Qty: 14 0RF
Continued
therapeutic multivitamin Tablet
1 tab PO DAILY
lisinopril 10 mg Tablet
10 mg PO DAILY
Discontinued
hydrocodone-acetaminophen 5-325 mg tablet
1 tab PO Q6H PRN (Reason: Pain) Qty: 10 0RF
Patient Comments:
04/02/24: filled 03/31/24 for 10 tablets
Discharge Orders:
Discharge Patient (As Directed); Ordered 04/04/24
Ordered By: Moncho Handy
Discharge Date and Time
Discharge Date/Time: 04/04/24 11:55
Print Language: MALIAN
== END 2024-04-04 11:55 | disposition home or self-care (01) | DRG 501 ==
LOC: 3 WEST ACU 23:59
PROVIDERS: Registered Nurse; ADMITTING PHYSICIAN Hospitalist; ATTENDING PHYSICIAN Hospitalist; CONSULT PHYSICIAN Orthopaedic Surgery; EMERGENCY PHYSICIAN Emergency Medicine; FAMILY PHYSICIAN Internal Medicine
PROC: 0MBN0ZZ Excision of Right Knee Bursa and Ligament, Open Approach (ICD-10-PCS; 2024-04-03)
DX: M71.161 Other infective bursitis, right knee (principal); L03.115 Cellulitis of right lower limb; Z68.41 Body mass index [BMI] 40.0-44.9, adult; E66.09 Other obesity due to excess calories; I10 Essential (primary) hypertension; B95.61 Methicillin susceptible Staphylococcus aureus infection as the cause of diseases classified elsewhere; Z79.899 Other long term (current) drug therapy; Z87.891 Personal history of nicotine dependence
CPT/HCPCS: 80048; 80053; 83036; 85025; 85027; 87040; 87070; 87075; 87147; 87186; 87205; 93971; 96374; 96375; 97161; 97165; 99285